=== PATIENT | female | born 2000 | race Native Hawaiian/Other Pacific Islander ===

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

== ENCOUNTER 2021-08-29 22:16 | Emergency (ER) | payer OTHER ==
[~2021-08-29] VITALS: Ht 172.7 cm; Wt 163.7 kg
[2021-08-29 22:35] VITALS: BP 140/85; TEMP 98.1
== END 2021-08-29 23:21 | disposition left against medical advice (07) ==
LOC: ED 22:16
DX: R42 Dizziness and giddiness (principal); R51.9 Headache, unspecified; Z53.29 Procedure and treatment not carried out because of patient's decision for other reasons
CPT/HCPCS: 80307; 81000; 81025; 99281